=== PATIENT | male | born 1935 | race Caucasian/White ===

== ENCOUNTER 2021-05-28 10:28 | Inpatient (IN) | payer OTHER ==
[~2021-05-28] VITALS: Ht 182.9 cm; Wt 89.4 kg
--- NOTE | ~2021-05-28 | D ---
[facility] [place] [address] DISCHARGE SUMMARY Name: FELICITAS FARRIS Room #: 460-P ADM IN M.R.#: [id number] Admission: 05/28/21 Attend Phys: Kameron Mariano DO Discharge: Date of : 37 Report #: [id number] THIS REPORT FOR: cc: Kameron Mariano,Kameron Mehta,Kameron Aguilar DO ~ cc: Jessi DevineWili MD, Hesham Lemus MD [facility] DATE OF SERVICE: 06/04/2021 HOSPITAL COURSE: This 85-year-old white male was admitted with hypotension and acute kidney injury. The patient was at snf at [facility] after being hospitalized at [facility] for exacerbation of chronic diastolic heart failure. He had been doing well; however, he became hypotensive I believe secondary to over diuresis with Zaroxolyn and Lasix. His usual creatinine is 2.1. In the Emergency Room, his creatinine here was 3.7. 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 PHYSICAL EXAMINATION: GENERAL: Initial physical revealed a weak, listless, elderly white male. VITAL SIGNS: BP in the ER was 95/52, pulse is 94. He is afebrile. HEAD AND NECK: Negative without oral lesions or bruits. LUNGS: Reveal decreased breath sounds in the bases. CARDIAC: Atrial fibrillation without gallop or significant murmur. ABDOMEN: Soft and nontender. EXTREMITIES: Had only trace edema. NEUROLOGIC: The patient is alert and oriented with very stiff knees, but no lateralized deficits. His chronic expressive aphasia was stable. LABORATORY DATA: Initial hemoglobin 12.1, white count 8700. Sodium 144, potassium 4.1, CO2 of 26, BUN 24, creatinine 3.7, estimated GFR 16, glucose 210, calcium 8.6. Liver enzymes normal. BNP at 2400. COVID-19 negative. Renal ultrasound showed no obstruction. Chest x-ray showed a patchy infiltrate in the right mid lung field. The patient was admitted on IV fluids, seen in consult by Dr. Lemus of Cardiology and Dr. Ng of Nephrology. Echocardiogram revealed an LVEF of 50-55% with severe dilatation of left atrium, mild aortic regurgitation, mild mitral regurgitation and normal pulmonary artery pressure. The patient's labs were followed frequently. His discharge sodium is 145, potassium 3.6, CO2 of 21, BUN 94, creatinine 2.9, estimated GFR 21, glucose 109, phosphorus 5.0, albumin 3.1, calcium 8.9. [address] [address] DISCHARGE SUMMARY Name: FELICITAS FARRIS Room #: 460-P [facility] IN M.R.#: [id number] Admission: 05/28/21 Attend Phys: Kameron Mariano DO Discharge: Date of : 37 Report #: [id number] Nephrology felt the patient had acute kidney injury due to hypovolemia and chronic kidney disease stage 4, hypotension, resolved. On 06/04/2021, he had been able to ambulate in his room with physical therapy, was able to move his legs easily in bed without pain and was stable for discharge back to snf at [facility] on a cardiac diet on metoprolol 25 mg b.i.d. if systolic pressure is over 110, tamsulosin 0.4 mg b.i.d., MiraLax 1 capful daily, Lidoderm patches to his knees daily, Augmentin 500 mg b.i.d. for another 2 days, pantoprazole 40 mg daily, Eliquis 2.5 mg b.i.d., lorazepam 0.5 mg at bedtime. DISCHARGE DIAGNOSES: 1. Acute kidney injury. 2. Hypotension due to hypovolemia. 3. Chronic diastolic heart failure. 4. Acute pneumonitis. 5. Chronic atrial fibrillation. 6. Chronic kidney disease stage 4. 7. Degenerative arthritis of knees and shoulders. 8. Hypertension. 9. Reactive depression. 10. Mild protein-calorie malnutrition. 11. Prostatism. 12. Anemia of chronic disease. By: [phone] Kameron Mariano, DO /nt
--- NOTE | ~2021-05-28 | EMS ---
[address] [address] EMS Patient Care Report Name: KALEIGHFELICITAS Room #: 460-P ADM IN M.R.#: [id number] Admission: 05/28/21 Attend Phys: Kameron Mariano DO Discharge: Date of : 37 Report #: [id number] THIS REPORT FOR: //name// Report Transmitted: 05/29/2021 07:09 EMS Care Summary [facility] MED-ACT Incident [id number] @ 05/28/2021 09:45 Incident Location [address] [place] [address] Patient FELICITAS FARRIS Male, 84 Years 1936-08-10 Patient Address [address] [address] Patient History Hypertension (HTN),Pacemaker/AICD,Stroke/CVA, Patient Allergies Other drug allergy, Patient Medications Lidocaine, Zofran, Tamsulosin, Ativan, Loratadine, ASA, Guaifenesin, Ferrous Sulfate, Lasix, Acetaminophen, Miralax, Omeprazole, Mucinex, Loperamide, Metoprolol, Eliquis, Bisacodyl, Chief Complaint "I feel dizzy" Disposition Transported No Lights/[place] Dispatch Reason Breathing Problem Transported To [facility] Narrative [facility] [address] [place] [address] EMS Patient Care Report Name: FELICITAS FARRIS Room #: 460-P [facility] IN [facility]#: [id number] Admission: 05/28/21 Attend Phys: Kameron Mariano DO Discharge: Date of : 37 Report #: [id number] HISTORY: Upon EMS arrival the patient was sitting in a recliner in his room with staff at his side. Staff stated they were doing V/S when they noted his BP to be low. Staff stated they elise lab values that indicated the patient to be dehydrated, they continued to give the patient his lasix and other BP medications. Staff stated the patient can normally walk with a walker with minimal difficulty on his own power, this morning he was unable to ambulate on his own power. The patient denied having any pain, he denied having any SOB, CP, BOCANEGRA, unilateral weakness, difficulty with urination or pain with urinations, N/V, recent illnesses, surgeries, or falls. Staff stated the patient has been vaccinated for covid and has had covid The patient stated he became slightly SOB when he walks or lays flat on his back which is abnormal for him. Staff stated the patient is acting his normal mental status, they reported the patient is A&Ox3 normally but can be forgetful at times, he has no history of dementia or Alzheimer's. Staff stated the patient has slurred speech due to a previous stroke. Patient reported that after NS had been administered he no longer felt dizzy. TREATMENT: V/S monitored, TEMP, a mask was placed on the patient, BG, 12 lead, IV established, 500cc of NS was administered wide open, exams were repeated, the patient was put in the position of comfort. TRANSPORT: The patient was assisted to the cot, he was moved to the ED bed via sheet drag without incident. DESTINATION: The patient was taken to [facility] room 12, report was given to nursing staff. Initial Vitals @10:05P: 76,SpO2: 98,KS Suspected: false @10:04P: 33,SpO2: 98,KS Suspected: false @10:22P: 105,SpO2: 95,KS Suspected: false @10:23P: 101,R: 16,BP: 97/68,SpO2: 96, @10:08P: 72,R: 16,BP: 98/63,SpO2: 95, @10:17P: 76,R: 16,BP: 96/64,SpO2: 96, @09:53P: 69,R: 16,BP: 82/54,Pain: 0/10,GCS: 15,Temp: 98.2F,Glucose: 196,SpO2: 96,Revised Trauma: 11, Impression Dizziness Procedures @10:05 12-Lead ECG Response: UnchangedSucceeded @10:09 IV Therapy - Saline Lock 500cc (20 ga) Site: Forearm-Left Response: UnchangedSucceeded @10:07 IV Therapy - Saline Lock 0cc (18 ga) Site: Forearm-Right Response: [address] [address] EMS Patient Care Report Name: FELICITAS FARRIS Room #: 460-P [facility] IN .R.#: [id number] Admission: 05/28/21 Attend Phys: Kameron Mariano, DO Discharge: Date of : 37 Report #: [id number] UnchangedFailed Timeline 09:41,Call Received 09:41,Psap Call 09:45,Dispatched 09:45,En Route 09:49,On Scene 09:53,At Patient 09:53,BP: 82/54 M,PULSE: 69,RR: 16 R,SPO2: 96 Ox,ETCO2: ,B,PAIN: 0,GCS: 15, 10:04,BP: / M,PULSE: 33,RR: R,SPO2: 98 Ox,ETCO2: ,BG: ,PAIN: ,GCS: , 10:05,12-Lead ECG,Response: UnchangedSucceeded, 10:05,BP: / M,PULSE: 76,RR: R,SPO2: 98 Ox,ETCO2: ,BG: ,PAIN: ,GCS: , 10:07,IV Therapy - Saline Lock 0cc 18 ga Site: Forearm-Right,Response: UnchangedFailed, 10:08,BP: 98/63 M,PULSE: 72,RR: 16 R,SPO2: 95 Ox,ETCO2: ,BG: ,PAIN: ,GCS: , 10:09,IV Therapy - Saline Lock 500cc 20 ga Site: Forearm-Left,Response: UnchangedSucceeded, 10:13,Depart Scene 10:17,BP: 96/64 M,PULSE: 76,RR: 16 R,SPO2: 96 Ox,ETCO2: ,BG: ,PAIN: ,GCS: , 10:22,BP: / M,PULSE: 105,RR: R,SPO2: 95 Ox,ETCO2: ,BG: ,PAIN: ,GCS: , 10:23,BP: 97/68 M,PULSE: 101,RR: 16 R,SPO2: 96 Ox,ETCO2: ,BG: ,PAIN: ,GCS: , 10:26,At Destination 11:04,Call Closed Disclaimer v1.1 Copyright 2020 [employer] This EMS Care Summary contains data elements from the applicable legal record (which may be displayed differently). It is designed to provide pertinent information for the following purposes: continuity of care, clinical quality, and state data reporting. The complete legal record is available to ED staff and administrators of the receiving hospital in [email or web address]'s Patient Tracker. All data is provided "as is."
[2021-05-28 10:30] VITALS: BP 98/57
[2021-05-28 11:50] LABS: ABSOLUTE NEUTROPHILS 6.1 thou/uL (1.4-8.2); BASOPHILS 0.4 % (0.0-2.0); EOSINOPHILS 1.1 % (0.0-3.0); HEMATOCRIT 38.2 % (42.0-52.0); HEMOGLOBIN 12.1 gm/dL (14.0-18.0); LYMPHOCYTES 16.1 % (24.0-44.0); MCH 31.8 pg (26.0-34.0); MCHC 31.7 g/dL (28.0-37.0); MCV 100.3 fL (80.0-100.0); MONOCYTES 12.6 % (1.0-8.0); PLATELET COUNT 318 thou/uL (150-400); POLYS 69.8 % (36.0-66.0); RDW 14.5 % (10.5-14.5); WBC 8.7 thou/uL (4.0-11.0)
[2021-05-28 11:56] LABS: CALCIUM 8.6 mg/dL (8.5-10.1); CREATININE 3.7 mg/dL (0.7-1.3); POTASSIUM 4.1 mmol/L (3.5-5.1)
[2021-05-28 12:02] LABS: ALBUMIN 3.4 g/dL (3.4-5.0); DIRECT BILIRUBIN 0.1 mg/dL (<0.1-0.2); TOTAL BILIRUBIN 0.6 mg/dL (0.2-1.0); TOTAL PROTEIN 6.9 g/dL (6.4-8.2)
[2021-05-28 17:09] VITALS: BP 111/63
[2021-05-28 17:30] VITALS: BP 121/67
[2021-05-28 17:55] VITALS: BP 141/85
--- NOTE | 2021-05-28 18:36 | NUR ---
[age] YEAR OLD MALE ADMITTED TO WEST ROOM 460 FOR WILL. PT ALERT AND ORIENTED TIMES FOUR. VSS, PT DENIES PAIN/SOA AT THIS TIME. PT RESTING WILL CONTINUE TO MONITOR.
[2021-05-28 21:24] VITALS: BP 119/67
--- NOTE | 2021-05-29 03:36 | NUR ---
ASSESSMENT DOCUMENTED.PT BEEN RESTING IN NO ACUTE DISTRESS.A/OX3 WITH FORGETFULNESS.VSS.PT DENIES ANY NEEDS AT THIS TIME.WILL CONT TO MONITOR PER POC.
[2021-05-29 05:09] LABS: ABSOLUTE NEUTROPHILS 6.1 thou/uL (1.4-8.2); BASOPHILS 0.4 % (0.0-2.0); EOSINOPHILS 1.1 % (0.0-3.0); HEMATOCRIT 39.9 % (42.0-52.0); HEMOGLOBIN 12.8 gm/dL (14.0-18.0); LYMPHOCYTES 14.7 % (24.0-44.0); MCH 31.9 pg (26.0-34.0); MCHC 32.2 g/dL (28.0-37.0); MCV 99.2 fL (80.0-100.0); MONOCYTES 11.2 % (1.0-8.0); PLATELET COUNT 329 thou/uL (150-400); POLYS 72.6 % (36.0-66.0); RBC 4.03 mil/uL (4.50-6.00); RDW 14.3 % (10.5-14.5); WBC 8.5 thou/uL (4.0-11.0)
[2021-05-29 05:31] LABS: MAGNESIUM 2.3 mg/dL (1.8-2.4); PHOSPHORUS 5.3 mg/dL (2.5-4.9)
[2021-05-29 07:34] VITALS: BP 139/75
--- NOTE | 2021-05-29 08:33 | EKG ---
[facility] [place] [address] ELECTROCARDIOGRAM REPORT Name: FELICITAS FARRIS Room #: 460-P ADM IN M.R.#: [id number] Admission: 05/28/21 Attend Phys: Kameron Mariano DO Discharge: Date of : 37 Report #: [id number] [facility] ED Test Date: 2021-05-28 Test Time: 10:50:13 Pat Name: FELICITAS FARRIS Department: Room: [facility] Gender: M Flight Attendant: ALY : 1935 Requested By: Mc Mathis Order Number: [id number] MD: Heshma Lemus Measurements Intervals [place] Rate: 69 P: 0 [place]: 60 QRS: -62 QRSD: 197 T: 102 QT: 461 QTc: 494 Interpretive Statements Ventricular-paced complexes No further analysis attempted due to paced rhythm Artifact in lead(s) I,II,III,aVR,aVL and baseline wander in lead(s) V4 No previous ECG available for comparison Electronically Signed On 05-29-2021 8:33:40 MOBILE TESTER by Hesham Lemus [email or web address] <ELECTRONICALLY SIGNED> By: Hesham Lemus MD, [facility] 05/29/21 0833 1050 1050 Hesham Lemus MD, [facility] /EPI
--- NOTE | 2021-05-29 14:54 | NUR ---
PT ADMITTED RELATED TO WILL. CM REVIEWED CHART AND SPOKE WITH CARE TEAM. CM MET WITH PT AT BEDSIDE THIS DAY. PT APPEARE TO BE A&O TIME 2. CM ROLE INTRODUCED. PT CONFIRMED THAT HE HAD BEEN SKILLED OVER AT [facility] PRIOR TO ADMISSION. PT INDICATED THAT HIS DTR WAS A GOOD CONTACT FOR HIM. CM CALLED DTR NIRANJAN ISIDRA . 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 DTR INDICATED THAT HE RESIDES AT [facility] IN [place], [place]. SHE INDICATED THAT HE HAD USED A FWW AND A WC TO ASSIST WITH MOBILITY THERE. CM TO SEND CLINICAL UPDATES TO [facility]. CM FOLLOWING REGARDING DC PLANNING.
[2021-05-29 15:16] VITALS: BP 122/63
--- NOTE | 2021-05-29 17:42 | H ---
[facility] [place] [address] HISTORY AND PHYSICAL Name: FELICITAS FARRIS Room #: 460-P ADM IN M.R.#: [id number] Admission: 05/28/21 Attend Phys: Kameron Mariano DO Discharge: Date of : 37 Report #: [id number] THIS REPORT FOR: cc: Kameron Mariano,Kameron Manning DO ~ DATE OF SERVICE: 05/28/2021 ROOM: 460 HISTORY OF PRESENT ILLNESS: This 85-year-old white male was admitted to [place] for the first time with hypotension and acute kidney injury. The patient was discharged from [facility] on 05/20/2001 after being treated for exacerbation of chronic diastolic heart failure. He was discharged to [facility] and was improving, however, his creatinine yesterday tiffani to 3.3, believed secondary to beginning Zaroxolyn for diuretic. It was held last night, but he became hypotensive with blood pressure 75 systolic this morning. He was sent to the Emergency Room here, where his creatinine was found to be elevated further to 3.7. The patient was lightheaded and weak with that low blood pressure. PAST MEDICAL HISTORY: Chronic diastolic heart failure, chronic atrial fibrillation, chronic partial expressive aphasia from stroke, chronic kidney disease stage IV, COVID-19 pneumonitis in January of this year, a permanent pacemaker in 2017, sigmoid colon resection in 2017 for cancer of the colon, appendectomy and severe arthritis of his shoulders and knees. He has been depressed since his several years ago. MEDICATIONS: On admission, Lasix 80 mg b.i.d., Zaroxolyn 2.5 mg Mondays, Wednesdays and Fridays, clonidine 0.2 mg at bedtime, metoprolol succinate 25 mg b.i.d., lorazepam 0.5 mg at bedtime, Lidoderm patch to his knees and shoulders twice a day, pantoprazole 40 mg daily, tamsulosin 0.4 mg b.i.d., Entresto 24 mg b.i.d., isosorbide mononitrate 60 mg daily, Celexa 10 mg daily, aspirin 81 mg daily and Eliquis 2.5 mg daily. ALLERGIES: CEFUROXIME. REVIEW OF SYSTEMS: The patient had been walking with a walker; however, stiffly on his knees. His endurance was improving before he became hypotensive. He denied chest pain, nausea, vomiting, diarrhea, dysuria, falls. PHYSICAL EXAMINATION: GENERAL: Pleasant, alert white male who recognized me immediately. VITAL SIGNS: BP initially 95/53, currently 141/85 after fluid infusion. Pulse is 94, respirations 18, temperature afebrile. HEAD: No rash or trauma. [address] [address] HISTORY AND PHYSICAL Name: FELICITAS FARRIS Room #: 460-P [facility] IN M.R.#: [id number] Admission: 05/28/21 Attend Phys: Kameron Mariano DO Discharge: Date of : 37 Report #: [id number] EARS, NOSE AND THROAT: No lesions. NECK: Supple without bruits. LUNGS: Clear with decreased breath sounds in the bases. HEART: Irregular rhythm without definite gallop. ABDOMEN: Soft, without mass, tenderness or guarding. EXTREMITIES: Only trace edema. NEUROLOGIC: He is alert and oriented, is able to sit up in bed easily. His knees are stiff. No definite lateralizing motor deficits. LABORATORY DATA: Hemoglobin is 12.1, white count 8700. Sodium 144, potassium 4.1, CO2 26, BUN 24, creatinine 3.7, estimated GFR 16, glucose 210, calcium 8.6. Total bilirubin 0.6, ALT 19, alkaline phosphatase 169 and BNP 2400. Albumin 3.4. COVID-19 negative. DIAGNOSTIC DATA: Renal ultrasound shows no obstruction. Chest x-ray shows patchy infiltrate in the right mid lung and infrahilar region and bibasilar atelectasis. IMPRESSION: 1. Acute hypotensive shock, probably due to hypovolemia. 2. Acute kidney injury. 3. History of chronic kidney disease stage IV. 4. Chronic atrial fibrillation. 5. Chronic diastolic heart failure. 6. Degenerative arthritis of knees and shoulders. 7. History of colon cancer. 8. Partial expressive aphasia, chronic anemia. 9. Hyperglycemia. PLAN: Resume cardiac meds cautiously, rehydrate cautiously, monitor kidney function, the patient remains full code, will need PT and OT once volume status is stable. <ELECTRONICALLY SIGNED> By: Kameron Mariano DO 05/29/21 1742 1733 1816 Kameron Mariano DO /nt
[2021-05-29 19:58] VITALS: BP 127/82
[2021-05-30 01:06] LABS: GLYCOHEMOGLOBIN (HGB A1C) 6.9 % (4.8-5.6)
--- NOTE | 2021-05-30 03:33 | NUR ---
PATIENT AOX4 MAKES NEEDS KNOWN, PATIENT FORGETFUL AT TIME.PATIENT IS HARD TO EXPRESS HIMSELF AT TIMES. PATIENT IMPULSIVE THIS SHIFT. PATIENT CALM AND COOPERATIVE WITH MEDS AND CARE. PATIENT USES BEDSIDE COMMODE. FALL PRECAUTION IN PLACE. PATIENT IN BED SLEEP AT THIS TIME BREATHING REGULAR AND UNLABOURED.
[2021-05-30 05:36] VITALS: BP 130/85
[2021-05-30 07:10] LABS: CALCIUM 8.8 mg/dL (8.5-10.1)
--- NOTE | 2021-05-30 17:07 | NUR ---
Pt is A & O x4. Pt VS stable. Pt pulled out IV this shift. Dr Mariano notified and stated it is ok to leave IV out for now. Pt is A & O x3. Pt received medications as ordered. Pt is x1 assist with ADLs and cares. Pt is able to make needs known
[2021-05-30 21:06] VITALS: BP 137/78
--- NOTE | 2021-05-31 02:24 | NUR ---
assumed care approx 1900 evening 05/30. pt awake, alert and oriented x4, pleasant and forgetful. pt voiding per urinal. 02 at 2l per n/c. pt took hs meds with water tolerating well. pt appears to be sleeping soundly. bed alarm on and call light in reach. will continue to monitor.
[2021-05-31 06:38] LABS: ALBUMIN 3.4 g/dL (3.4-5.0); CALCIUM 8.9 mg/dL (8.5-10.1); PHOSPHORUS 5.2 mg/dL (2.6-4.7); POTASSIUM 4.2 mmol/L (3.5-5.1)
[2021-05-31 07:00] VITALS: BP 134/76
--- NOTE | 2021-05-31 12:19 | NUR ---
ASSUMED PT CARE THIS AM. PT A&OX4, ABLE TO MAKE NEEDS KNOWN. PATIENT REPORTING NO PAIN. IV STARTED TO LEFT FOREARM. PATIENT HAS EXPRESSIVE APHASIA, BUT IS ABLE TO MAKE ALL NEEDS KNOWN WITH CALL LIGHT. PATIENT REMAINS CONTINENT, USES THE URINAL AT BEDSIDE. PATIENT IS ON ROOM AIR. MEDICATIONS TAKEN WITHOUT ISSUE. FALL PRECAUTIONS ARE IN PLACE, CALL LIGHT WITHIN REACH.
--- NOTE | 2021-05-31 12:22 | 2DMMODE ---
[facility] [place] [address] 2 D/M-MODE ECHOCARDIOGRAM Name: KALEIGHFELICITAS Sergei Room #: 460-P ADM IN M.R.#: [id number] Admission: 05/28/21 Attend Phys: Kameron Mariano DO Discharge: Date of : 37 Report #: [id number] THIS REPORT FOR: cc: Kameron Mariano,Hesham Valdes MD [facility] ~ APPROVED REPORT Study performed: 05/31/2021 11:02:52 EXAM: Comprehensive 2D, Doppler, and color-flow Echocardiogram Patient Location: Bedside Room #: 460 Status: on-call BSA: 2.12 HR: 75 bpm BP: 134/76 mmHg Other Information Study Quality: Adequate Risk Factors: Cardiac Risk Factors: HTN Indications Congestive Heart Failure Pacemaker Hypertension/HDD 2D Dimensions IVSd: 11.73 (7-11mm) LVOT Diam: 21.00 (18-24mm) LVDd: 41.64 mm PWd: 12.62 (7-11mm) Ascending Ao: 34.34 (22-36mm) LVDs: 31.81 (25-40mm) Aortic Root: 26.39 mm LV Single Plane 4CH: 52.84 % LV Single Plane 2CH: 43.96 % Biplane EF: 48.4 % Volumes Left Atrial Volume (Systole) Single Plane 4CH: 154.43 mL Single Plane 2CH: 111.71 mL LA ESV Index: 69.00 mL/m2 [facility] [address] [place] [address] 2 D/M-MODE ECHOCARDIOGRAM Name: FELICITAS FARRIS Room #: 460-P [facility] IN ..#: [id number] Admission: 05/28/21 Attend Phys: Caroline Chambers Discharge: Date of : 37 Report #: [id number] Aortic Valve AoV Peak Dayron.: 1.50 m/s AO Peak Gr.: 8.99 mmHg LVOT Max P.26 mmHg LVOT Max V: 0.90 m/s [place] Vmax: 2.01 cm2 AI Vmax: 3.20 m/s AI [place]: 0.83 m/s2 AI PHT: 1119.74 ms Pulmonary Valve PV Peak Dayron.: 0.92 m/s PV Peak Gr.: 3.40 mmHg Tricuspid Valve TR Peak Dayron.: 2.37 m/s RAP Estimate: 10.00 mmHg TR Peak Gr.: 22.49 mmHg PA Pressure: 33.00 mmHg Left Ventricle The left ventricle is normal size. There is normal LV segmental wall motion. There is normal left ventricular wall thickness. Left ventricular systolic function is at the lower limits of normal. LVEF 50-55%. This study is not technically sufficient to allow evaluation of the LV diastolic function. Right Ventricle The right ventricle is normal size. The right ventricular systolic function is normal. Pacemaker lead is present in the right ventricle. Atria Left atrium is severely dilated. Right atrium is dilated. Pacemaker lead is present in the right atrium. Aortic Valve Mild aortic valve calcification Mild aortic regurgitation. There is no aortic valvular stenosis. Mitral Valve Mild mitral annular calcification. Mild mitral regurgitation. No evidence of mitral valve stenosis. Tricuspid Valve The tricuspid valve is normal in structure. Mild to moderate tricuspid regurgitation. Pulmonary artery pressure is 30 mmHg. Pulmonic Valve [facility] [address] [place] [address] 2 D/M-MODE ECHOCARDIOGRAM Name: FELICITAS FARRIS Room #: 460-P ADM IN .R.#: [id number] Admission: 05/28/21 Attend Phys: Caroline Chambers Discharge: Date of : 37 Report #: [id number] The pulmonary valve is normal in structure. There is no pulmonic valvular regurgitation. Great Vessels The aortic root is normal in size. The ascending aorta is normal in size. IVC is normal in size and collapses >50% with inspiration. Pericardium There is no pericardial effusion. <Conclusion> Left ventricular systolic function is at the lower limits of normal. There is normal LV segmental wall motion. LVEF 50-55%. Both atria are dilated. Pacemaker lead is present in the right atrium. Mild aortic valve calcification. Mild aortic regurgitation, no stenosis. Mild mitral annular calcification. Mild mitral regurgitation. Mild to moderate tricuspid regurgitation. Pulmonary artery pressure of 30 mmHg. There is no pericardial effusion. <ELECTRONICALLY SIGNED> By: Hesham Lemus MD, FACC 05/31/211221 21 21 Hesham Lemus MD, FACC /INF
[2021-05-31 16:00] VITALS: BP 126/75
[2021-05-31 19:29] VITALS: BP 142/87
--- NOTE | 2021-06-01 05:46 | NUR ---
ASSUMED CARE OF PT AT 1900. PT ASSESSED TO BE AOX4 85M PRESENTING WITH WILL. THROUGHOUT THE NIGHT PT WAS ABLE TO REST QUIETLY IN BED WITH NO COMPLAINTS, VSS. PT IS CONTINENT OF BOWEL AND BLADDER USING THE URINAL AND COMMODE. CARLOS EXPRESSIVE APHASIA FROM PAST CVA. ABLE TO GET UP TO THE COMMODE WITH X1 ASSIST AND A WALKER. STABLE ON ROOM AIR, FLUIDS INFUSING TO LAC IV. HAD A BM LAST NIGHT THAT WAS VERY LOOSE. NO PAIN VERBALIZED. WILL CONTINUE TO MONITOR.
[2021-06-01 06:33] LABS: ALBUMIN 3.3 g/dL (3.4-5.0); PHOSPHORUS 4.9 mg/dL (2.6-4.7); POTASSIUM 3.9 mmol/L (3.5-5.1)
[2021-06-01 07:00] VITALS: BP 116/76
--- NOTE | 2021-06-01 11:31 | NUR ---
ASSUMED PT CARE THIS AM. PT A&OX4, ABLE TO MAKE NEEDS KNOWN. PATIENT PLEASANT AND COOPERATIVE WITH CARES. MEDICATIONS TAKEN WITHOUT ISSUE. PATIENT HAS EXPRESSIVE APHASIA, BUT ABLE TO MAKE NEEDS KNOWN VERBALLY. PATIENT COMPLAINED OF RIGHT SHOULDER PAIN, LIDOCAINE PATCH PLACED ON. IV PATENT, SALINE LOCKED. PATIENT HAD A BM THIS SHIFT, AND REMAINS CONTINENT USING A URINAL AND BEDSIDE COMMODE. PATIENT AMBULATORY WITH ASSIST OF ONE WITH A GAIT BELT AND WALKER. FALL PRECAUTIONS ARE IN PLACE, CALL LIGHT WITHIN REACH.
[2021-06-01 20:15] VITALS: BP 139/77
--- NOTE | 2021-06-01 23:05 | NUR ---
ASSUMED CARE OF PT AT 1915. PT IS A&OX3. HAS EXPRESSIVE APHASIA. IS ON ROOM AIR. DENIES PAIN. IS STABLE. IS UP WITH 1 ASSIST, GB, WALKER TO BSC. FALL PRECAUTIONS & HOURLY ROUNDING CONTINUED THIS SHIFT. LABS & VITALS REVIEWED. LIDOCAINE PATCH REMOVED FROM RIGHT SHOULDER. PT IS CURRENLTY IN BED. CALL LIGHT WITHIN REACH. PT VOIDS PER UNRINAL. WILL CONTINUE TO MONITOR.
[2021-06-02 05:55] LABS: ALBUMIN 3.2 g/dL (3.4-5.0); CALCIUM 9.2 mg/dL (8.5-10.1); PHOSPHORUS 5.8 mg/dL (2.5-4.9); POTASSIUM 3.7 mmol/L (3.5-5.1)
[2021-06-02 08:49] VITALS: BP 136/81
--- NOTE | 2021-06-02 14:19 | NUR ---
ASSUMED PT CARE THIS AM. PT A&OX4, ABLE TO MAKE NEEDS KNOWN. PATIENT REPORTING RIGHT SHOULDER PAIN, LIDOCAINE PATCH APPLIED. PATIENT REMAINS CONTINENT, AMBULATES WITH ASSIST TO THE BEDSIDE COMMODE. PATIENT IS ON ROOM AIR. MEDICATION TAKEN WITHOUT ISSUE. FALL PRECAUTIONS ARE IN PLACE, CALL LIGHT WITHIN REACH.
--- NOTE | 2021-06-02 15:31 | NUR ---
CM SPOKE MICHAEL GALAN IN ADMISSIONS AT [facility] THIS AM. CM FAXED CLINICAL UPDATE. CM FOLLOWING REGARDING PT'S RETURN TO [facility] SKILLED ONCE MEDICALLY STABLE.
[2021-06-02 17:27] VITALS: BP 134/85
[2021-06-02 20:53] VITALS: BP 142/97
--- NOTE | 2021-06-03 05:10 | NUR ---
ASSUMED PT CARE THIS PM. PT IS ALERT AND ORIENTED X4. PT IS ABLE TO VERBALIZE NEEDS AND USE CALL LIGHT. PT USES URINAL AND IS UPX1 TO BR. PT HAS EXPRESSIVE APHASIA AND CAN SOMETIMES BE INCOHERENT. PT DID NOT VERBALIZE ANY CONCERNS. PT IS ON RA. FALL PRECAUTIONS IN PLACE. WILL CONTNUE TO MONITOR.
--- NOTE | 2021-06-03 07:32 | NUR ---
PER DR BRANDT, PATIENT IS OKAY TO HAVE NO IV ACCESS AT THIS TIME.
[2021-06-03 08:18] VITALS: BP 121/73
--- NOTE | 2021-06-03 14:29 | NUR ---
ASSUMED PT CARE THIS AM. PT A&OX4, ABLE TO MAKE NEEDS KNOWN. PATIENT REPORTING PAIN IN HIS RIGHT SHOULDER, DECREASES WITH LIDOCAINE PATCH PLACED. PATIENT UP WITH ASSIST TO THE BATHROOM, REMAINS CONTINENT. FALL PRECAUTIONS ARE IN PLACE, CALL LIGHT WITHIN REACH. PATIENT REMAINS ON ROOM AIR.
--- NOTE | 2021-06-03 15:18 | NUR ---
DR. BRANDT INDICATED THAT PT WILL LIKELY BE DC READY TO RETURN TO [facility] TOMORROW. CM UPDATED PT'S DTR NIRANJAN AND ANGELIA AT [facility] AND THEY ARE ABLE TO ACCEPT PT TOMORROW. CM TO FACILITATE PT'S DC TO [facility] TOMORROW.
[2021-06-03 20:06] VITALS: BP 117/87
--- NOTE | 2021-06-04 04:55 | NUR ---
06/03/211899, ASSUMED CARE FROM DAY SHIFT, IN BED AWAKE, ALERT ORIENTED X4, ABLE TO MAKE NEEDS KNOWN, CONTINENT OF BOWEL AND BLADDER, UP WITH ASSIST TO TOILET. ADMITTESD TO [facility] ([facility]) HX OF ESPRESSIVE APHASIA, CAN SLOWLY MAKE SELF UNDERSTOOD AND MAKE NEEDS KNOWN. LIDOCAIN PATCH ON RIGHT SHOULDER AND REMOVED @ HS. HAS NO IV ACCESS, WHICH IS APROVED BY HIS DOCTOR D/T HAVING NO IV MEDS. BED IN LOW POSITION, VSS. CALL LIGHT WITHIN REACH, RESTING WELL @ NIGHT.
[2021-06-04 06:10] LABS: ALBUMIN 3.1 g/dL (3.4-5.0); CALCIUM 8.9 mg/dL (8.5-10.1); CREATININE 2.9 mg/dL (0.7-1.3); POTASSIUM 3.6 mmol/L (3.5-5.1)
[2021-06-04] MEDS ORDERED: AUGMENTIN 500-1 EACH PO (07:50)
[2021-06-04] MEDS ORDERED: ELIQUIS2.5 MG PO (07:51)
[2021-06-04] MEDS ORDERED: METOPROLOL SUCC25 M1 PO (07:51)
[2021-06-04] MEDS ORDERED: FLOMAX0.4 MG PO (07:51)
[2021-06-04] MEDS ORDERED: CELEXA10 MG PO (07:52)
[2021-06-04] MEDS ORDERED: LORAZEPAM 0.50.5 MG PO (07:52)
[2021-06-04] MEDS ORDERED: MIRALAX17 GM PO (07:53)
[2021-06-04] MEDS ORDERED: PROTONIX 20 MG20 M1 PO (07:54)
[2021-06-04] MEDS ORDERED: LIDOCAINE1 EACH TRANSDERM (07:54)
[2021-06-04 08:00] VITALS: BP 134/90
--- NOTE | 2021-06-04 13:57 | NUR ---
[facility] IN ADMISSIONS INDICATED THAT THEY HAVE A COVID CASE ON THEIR SKILLED UNIT AND THEREFORE WON'T BE ABLE TO TAKE PT BACK THERE. THEY INDICATED THAT THEY CAN TAKE PT TO THEIR LTC UNIT AND PROVIDE SKILLED SERVICES THERE. CM CALLED AND SPOKE WITH PT'S DTR NIRANJAN AND WITH PT AND THEY ARE AGREEABLE TO PT RETURNING TO LTC SIDE FOR SKILLED THERAPY. ORDERS FAXED. CHART COPY MADE. NURSE GIVEN NUMBER FOR REPORT. VAN TRANSPORT ARRANGED FOR 1630. NO THERE CM INTERVENTION INDICATED. CASE CLOSED.
--- NOTE | 2021-06-04 16:28 | NUR ---
Pt A & O x3. Pt Vs stable. Pt received medications as ordered. Pt is able to make needs known. Pt received orders to facility. Pt discharge packet given to crude oil driver. Pt wheeled in wheelchair by crude oil driver with personal belongingsto hospitial enterence
== END 2021-06-04 17:45 | DRG 682 ==
LOC: ER 10:28 → EROBS 13:38 → 4W 13:38
PROVIDERS: Hospitalist; Student in an Organized Health Care Education/Training Program; ADMIT Internal Medicine; ATTEND Internal Medicine
DX: N17.0 Acute kidney failure with tubular necrosis (principal); R57.1 Hypovolemic shock; J18.9 Pneumonia, unspecified organism; I50.23 Acute on chronic systolic (congestive) heart failure; E87.0 Hyperosmolality and hypernatremia; E44.1 Mild protein-calorie malnutrition; I13.0 Hypertensive heart and chronic kidney disease with heart failure and stage 1 through stage 4 chronic kidney disease, or unspecified chronic kidney disease; I48.21 Permanent atrial fibrillation; N18.4 Chronic kidney disease, stage 4 (severe); R73.9 Hyperglycemia, unspecified; D63.8 Anemia in other chronic diseases classified elsewhere; Z20.822 Contact with and (suspected) exposure to COVID-19; I95.9 Hypotension, unspecified; N40.0 Benign prostatic hyperplasia without lower urinary tract symptoms; F32.A Depression, unspecified; M17.0 Bilateral primary osteoarthritis of knee; M19.012 Primary osteoarthritis, left shoulder; M19.011 Primary osteoarthritis, right shoulder; I25.5 Ischemic cardiomyopathy; E78.5 Hyperlipidemia, unspecified; K21.9 Gastro-esophageal reflux disease without esophagitis; I49.5 Sick sinus syndrome; E86.9 Volume depletion, unspecified; E86.0 Dehydration; Z85.038 Personal history of other malignant neoplasm of large intestine; I69.320 Aphasia following cerebral infarction; Z88.8 Allergy status to other drugs, medicaments and biological substances; Z68.26 Body mass index [BMI] 26.0-26.9, adult; Z95.0 Presence of cardiac pacemaker; Z90.49 Acquired absence of other specified parts of digestive tract
CPT/HCPCS: 10040